=== PATIENT | male | born 1975 | race Caucasian/White ===

== ENCOUNTER 2020-04-02 08:56 | Outpatient (REF) | payer OTHER, SELFPAY | END 2020-04-02 08:57 | disposition home or self-care (01) | LOC: HO.LAB 08:56 | PROVIDERS: Visit Provider Internal Medicine | DX: Z20.828 Contact with and (suspected) exposure to other viral communicable diseases (principal) | CPT/HCPCS: C9803; U0003 ==

== ENCOUNTER 2022-07-24 21:26 | Emergency (ER) | payer SELFPAY ==
--- NOTE | ~2022-07-24 | CT_ITS ---
EXAMINATION: CT ANGIOGRAM NECK CT HEAD WITHOUT CONTRAST CT MAXILLOFACIAL WITHOUT IV CONTRAST CLINICAL INFORMATION: Reason for Exam etoh, fell in ramírez, branch stabbed L neck COMPARISON: None. TECHNIQUE: A noncontrast CT scan was performed from the skull base to the vertex. Multidetector CT acquisitions of the maxillofacial region was obtained without IV contrast. Coronal and sagittal reformats were obtained at the acquisition workstation. Test bolus sequences followed by intravenous administration 70 mL of Omnipaque 350. Helical imaging was performed in the axial plane from the aortic arch to the skull base. The data was processed at the medical lab technologist's workstation for generation of MIP sequences. Angled MIPs and volume rendered reformatted images were also generated at an offline 3D workstation. Stenoses are assessed in accordance with NASCET criteria unless otherwise indicated. This CT examination was performed using dose optimization techniques as appropriate, variously including the following: *Automated exposure control *Adjustment of mA and/or kV according to patient size (this includes techniques or standardized protocols for targeted exams where dose is matched to indication/reason for exam; i.e. extremities or head) *Use of iterative reconstruction technique DLP: 587 mGy-cm FINDINGS: Head: Motion degraded examination. Bifrontal scalp hematoma/contusion. The ventricles and sulci are normal in size and configuration without significant volume loss or hydrocephalus. There is no abnormal attenuation within the brain parenchyma. No territorial loss of moore-white differentiation. No acute intracranial hemorrhage or extra-axial fluid collection. No mass lesion, significant mass effect, or herniation pattern. The orbits are grossly normal. Osseous structures are intact. Maxillofacial: Motion degraded examination compromising diagnostic assessment. Acute mildly displaced nasal bone fractures with soft tissue swelling of the nasal soft tissues and overlying subcutaneous gas on the right, noting motion artifact limits assessment. Partially opacified nasal vestibule. The mandible, maxilla, pterygoid plates, zygomatic arches, paranasal sinus lewis, and bony orbits are intact. No acute osseous abnormality within the maxillofacial region. Mucous retention cyst along the anterior sphenoid sinus. Mastoid air cells remain well-aerated. CTA NECK: The aortic arch is normal. Beam hardening artifact from dense contrast bolus within the adjacent left brachiocephalic vein and limits assessment of the great vessel origins. The common carotid arteries are widely patent. The carotid bifurcations and bilateral internal carotid arteries are patent, noting minimal atherosclerosis at the carotid bifurcations and focal mild tortuosity of the mid right cervical ICA. The vertebral artery ostia are widely patent. Both vertebral arteries are widely patent throughout their extracranial cervical course. CT NECK: 1.1 cm deep subcutaneous laceration within the anterolateral left neck at the level of the hyoid bone approximating the left platysma with adjacent stranding of the subcutaneous fat, foci of air, and asymmetric slight thickening of the left platysma muscle. No drainable fluid collection or hematoma. Impacted bilateral posterior mandibular molar teeth and posterior left maxillary molar tooth. Unremarkable appearance of the aerodigestive tract. The salivary glands are unremarkable. The thyroid gland is unremarkable. No pathologically enlarged cervical chain lymph nodes. The osseous structures are intact without acute osseous injury in the cervical spine. Mild cervical spondylosis. The visualized lung apices and upper mediastinum are within normal limits. CT/CT facial bones wo IV con IMPRESSION: Motion degraded examination. 1. No acute intracranial findings. Bifrontal scalp hematoma/contusion. 2. Acute mildly displaced nasal bone fractures 3. No evidence of traumatic vascular injury in the neck. 4. 1.1 cm deep subcutaneous laceration within the anterolateral left neck at the level of the hyoid bone without drainable fluid collection or hematoma.
--- NOTE | ~2022-07-24 | XR_ITS ---
EXAMINATION: XR CHEST CLINICAL INFORMATION: Chest pain status post fall. COMPARISON: None TECHNIQUE: Frontal view of the chest was obtained. FINDINGS: No significant abnormality is noted involving the heart, lungs, mediastinum, bony thorax or soft tissues. XR/XR chest 1V IMPRESSION: No acute cardiopulmonary process. No evidence for acute traumatic injury.
--- NOTE | 2022-07-24 21:34 | ECG_ITS ---
Test Reason : FALL Blood Pressure : / mmHG Vent. Rate : 114 BPM Atrial Rate : 114 BPM P-R Int : 148 ms QRS Dur : 066 ms QT Int : 286 ms P-R-T Axes : 059 046 050 degrees QTc Int : 394 ms Sinus tachycardia Septal infarct , age undetermined Abnormal ECG No previous ECGs available Referred By: Padmini Link Electronically Signed By:YAZMIN LORENZO MD
[2022-07-24 21:54] VITALS: BP 160/100; BP 172/100; PULSE 114; PULSE 122; RESP 16; O2SAT 94; O2SAT 98; BMI 20.7
[2022-07-24 21:58] VITALS: BP 172/100; PULSE 122; RESP 16; O2SAT 94
[2022-07-24] MEDS: LORazepam 2 MG/ML VIAL IVPUSH (22:21)
[2022-07-24] MEDS: Lidocaine HCl 2%/Epi 1:100,000 20 ML VIAL INFILTRATI (22:21)
[2022-07-24] MEDS: 0.9 % Sodium Chloride 1,000 ML 999 ML IVCONT (22:22)
[2022-07-24] MEDS: iohexoL 350 MG/ML 100 ML INFUS..BTL IV (22:23)
--- NOTE | 2022-07-24 22:56 | MHC.EDTECH ---
pt blood drawn covid swab collected and sent to lab ,pt ekg done and was read by dr greenberg ,pt was assisted to regional climate change analyst into hospital attire ,pt came in with dry blood on his entire face and hands due to several laceration on face and neck ,all wounds was clean with saline by this pct .
[2022-07-24 23:00] LABS: Basophils Percent Auto 0.3 % (0-2); Eosinophils Percent Auto 0.6 % (0-4); Hematocrit 45.9 % (42.0-52.0); Hemoglobin 15.9 g/dl (14.0-18.0); Imm Gran Abs Auto 0.02 X10*3/uL (0.00-0.03); Imm Gran Pct Auto 0.3 % (0.0-0.4); Lymphocytes Percent Auto 15.1 % (20-40); MANUAL DIFF FLAG NO; Mean Corpuscular HGB Conc 34.6 g/dl (31.0-36.0); Mean Corpuscular Hemoglobin 34.9 pg (27.0-33.0); Mean Corpuscular Volume 100.7 fL (80.0-98.0); Mean Platelet Volume 8.5 fL (9.4-12.4); Monocytes Absolute Auto 0.3 X10*3/uL (0.1-1.2); Monocytes Percent Auto 4.4 % (2-11); Neutrophils Absolute Auto 5.4 x10*3/uL (2.0-8.3); Neutrophils Percent Auto 79.3 % (45-73); Platelet Count 231 X10*3/uL (160-400); Red Blood Count 4.56 X10*6/uL (4.60-5.80); Red Cell Distribution Width 12.1 % (11.0-16.0); White Blood Count 6.8 X10*3/uL (4.8-10.8)
[2022-07-24 23:13] LABS: Ethanol 365 mg/dL; INTERNATIONAL NORM RATIO 0.8 (0.9-1.1); Prothrombin Time 9.6 SEC (10.0-13.1)
[2022-07-24 23:15] LABS: Alanine Aminotransferase 21 U/L (0-40); Albumin Level 4.3 g/dL (3.5-5.0); Alkaline Phosphatase 122 U/L (39-117); Anion Gap 18 (12-20); Aspartate Amino Transferase 27 U/L (5-37); Bilirubin Direct < 0.2 mg/dL (0.0-0.5); Bilirubin Total 0.7 mg/dL (0.0-1.0); Blood Urea Nitrogen 11 mg/dL (9-16); Calcium 8.6 mg/dL (8.4-10.2); Carbon Dioxide 21 mmol/L (22-29); Chloride 105 mmol/L (96-108); Creatinine Clr Calc Pharmacy 88.1; Estimated Glomerular Filt Rate > 60; Glucose Random 106 mg/dL (60-115); Sodium 140 mmol/L (135-145); Total Protein 6.7 g/dL (6.5-8.0)
[2022-07-24 23:16] LABS: COVID-19 Test Negative (Negative); IDNOW Serial# 16C4AD1C
[2022-07-24 23:24] LABS: Troponin-I High Sensitivity < 3.5 ng/L (<3.5-35.0)
--- NOTE | 2022-07-25 01:04 | ED_ITS ---
HPI - Alcohol General Chief Complaint: ETOH/Substance Use Stated Complaint: ETOH With Head Strike Time Seen by Provider: 07/24/22 21:31 Source: patient and EMS Mode of arrival: EMS Limitations: other (Alcohol intoxication) History of Present Illness HPI narrative: Patient comes in the emergency room complaining of alcohol intoxication, laceration to the left side of the neck. There is a small 0.5 cm piece of wood sticking out from the laceration in the left side of the neck. Patient is intoxicated, awake and alert x3. Patient states that he drank a large amount of vodka today. Patient does not remember falling. Patient's friend who was with him explained to EMS that the patient fell into a ramírez. Bleeding control, patient speaking full sentences, has no difficulty breathing. Related Data Allergies Allergy/AdvReac Type Severity Reaction Status Date / Time Unable to Assess Allergy Unverified 07/24/22 21:31 Review of Systems Review of Systems: Constitutional : No Weight loss, No Fever, No Chills, No Night Sweats, No Fatigue, No Malaise ENT/Mouth : No Hearing loss, No Ear Pain, No Nasal Congestion, No Sinus Pain, No Hoarseness, No sore throat, No Rhinorrhea, No Swallowing Difficulty Eyes: No Eye Pain, No Swelling, No Redness, No Foreign Body, No Discharge, No Vision Changes Cardiovascular : No Chest Pain, No SOB, No Dyspnea on Exertion, No Orthopnea, No Edema, No Palpitations Respiratory : No Cough, No Sputum, No Wheezing, No Smoke Exposure, No Dyspnea Gastrointestinal : No Nausea, No Vomiting, No Diarrhea, No Constipation, No abdominal Pain, No Hematochezia, No Melena Genitourinary : no irregular bleeding, No Dysuria, No Urinary Frequency, No Hematuria, No Urinary Incontinence, No Urgency, No Flank Pain, No Urinary Flow Changes, No Hesitancy Musculoskeletal : No joint pain, No Myalgias, No Joint Swelling Skin : Complaining of a laceration to the left side of the neck and multiple abrasions to the face and contusions Neuro : No Weakness, No Numbness, No Paresthesias, No Loss of Consciousness, No Dizziness, patient denies Headache Psych : No Anxiety/Panic, No Depression, No SI/HI/AH/VH, No Social Issues, Heme/Lymph: No Bruising, No Bleeding,No Lymphadenopathy Endocrine : No Polyuria, No Polydipsia, No Temperature Intolerance [facility] Past Medical History Medical History Alcohol abuse Social History Social History Alcohol intake: current Alcohol intake frequency: a few times a week Smoked in Last 30 Days: No Use of substances other than those prescribed or required for medical reasons: No Advance Directives: No Advance Directives Information Provided: No Physical Exam ED Vital Signs: Vital Signs - 24 hr 07/24/22 21:54 07/24/22 21:58 Pulse Rate 122 H 122 H Respiratory Rate 16 16 Blood Pressure 172/100 H 172/100 H Pulse Oximetry 94 94 Oxygen Delivery Method Room Air Room Air BMI result Body Mass Index 20.7 Const Other: Appearance: Alert. Oriented X3. Clearly intoxicated but calm and cooperative Eyes: Pupils equal, round and reactive to light. ENT: Patient's nose is swollen, likely has a nasal fracture. Patient has a laceration under the left nostril, patient has a bigger laceration to the left side of the neck, there is a small piece of wood exiting the wound Neck: no palpable step-offs CVS: Normal heart rate and rhythm. Pulses normal. Normal S1 and S2 Respiratory: No respiratory distress. Breath sounds normal. No Wheezing. No rales Abdomen: Soft and nontender. No rigidity. No distention. Skin: Skin warm and dry. Normal skin color. Normal skin turgor. Extremities: No lower extremity edema. No Lacerations. No Rash Neuro: Oriented X 3. No motor deficit. No sensory deficit. Moving all extremities. No slurred speech. CN 2 through 12 grossly intact Psych: calm, cooperative, normal affect Course Course Course Narrative: -on arrival, patient was taking immediately to CT scan. Patient was moving too much, given 2 mg of IV Ativan to help him stay still. -labs pending Medical Decision Making Medical Decision Making MDM Narrative: -patient's CT scan shows a nasal fracture also, there is a laceration to the left side of the neck, patient has multiple bifrontal scalp hematomas/contusions, no brain bleed, vascular structures and intact -patient received 7 stitches to the left side of the neck. Two stitches under the left nostril. For the neck, 2% lidocaine with epinephrine was used. For the nose, patient was noted to be very somnolent, it was done without lidocaine, patient tolerated well the procedure. -patient's fiancee at bedside, she seems intoxicated too, but being calm and cooperative, very anxious. Differential Diagnosis Differential Diagnoses: The differential diagnosis associated with the presentation includes (Alcohol intoxication, fall, contusion, brain bleed) Lab Data MDM Lab Attestation statement: I reviewed the patient's lab results. 07/24/22 22:50 07/24/22 22:50 Labs: Lab Results 07/24/22 07/24/22 07/24/22 Range/Units 22:50 22:50 22:50 WBC 6.8 (4.8-10.8) X10*3/uL RBC 4.56 L (4.60-5.80) X10*6/uL Hgb 15.9 (14.0-18.0) g/dl Hct 45.9 (42.0-52.0) % MCV 100.7 H (80.0-98.0) fL MCH 34.9 H (27.0-33.0) pg MCHC 34.6 (31.0-36.0) g/dl RDW 12.1 (11.0-16.0) % Plt Count 231 (160-400) X10*3/uL MPV 8.5 L (9.4-12.4) fL Immature Gran % (Auto) 0.3 (0.0-0.4) % Neut % (Auto) 79.3 H (45-73) % Lymph % (Auto) 15.1 L (20-40) % Marshall % (Auto) 4.4 (2-11) % Eos % (Auto) 0.6 (0-4) % Baso % (Auto) 0.3 (0-2) % Lymph # (Auto) 1.0 L (1.2-4.9) X10*3/uL Marshall # (Auto) 0.3 (0.1-1.2) X10*3/uL Eos # (Auto) 0.0 (0.0-0.4) X10*3/uL Baso # (Auto) 0.0 (0.0-0.2) X10*3/uL Abs Immat Gran (auto) 0.02 (0.00-0.03) X10*3/uL Absolute Neuts (auto) 5.4 (2.0-8.3) x10*3/uL Absolute Nucleated RBC 0.000 (0.0-0.012) X10*3/uL Nucleated RBC % (auto) 0.0 (0.0-0.2) /100WBC PT 9.6 L (10.0-13.1) SEC INR 0.8 L (0.9-1.1) Sodium 140 (135-145) mmol/L Potassium 4.0 (3.3-5.1) mmol/L Chloride 105 (96-108) mmol/L Carbon Dioxide 21 L (22-29) mmol/L Anion Gap 18 (12-20) BUN 11 (9-16) mg/dL Creatinine 0.95 (0.5-1.4) mg/dL Estim Creat Clear Calc 88.1 Estimated GFR > 60 Random Glucose 106 (60-115) mg/dL Calcium 8.6 (8.4-10.2) mg/dL Magnesium 2.0 (1.6-2.6) mg/dL Total Bilirubin 0.7 (0.0-1.0) mg/dL Direct Bilirubin < 0.2 (0.0-0.5) mg/dL AST 27 (5-37) U/L ALT 21 (0-40) U/L Alkaline Phosphatase 122 H (39-117) U/L Troponin I High Sens (<3.5-35.0) ng/L Total Protein 6.7 (6.5-8.0) g/dL Albumin 4.3 (3.5-5.0) g/dL Ethyl Alcohol mg/dL COVID-19 ([facility]) (Negative) COVID-19 Clin Com 07/24/22 07/24/22 07/24/22 Range/Units 22:50 22:50 22:50 WBC (4.8-10.8) X10*3/uL RBC (4.60-5.80) X10*6/uL Hgb (14.0-18.0) g/dl Hct (42.0-52.0) % MCV (80.0-98.0) fL MCH (27.0-33.0) pg MCHC (31.0-36.0) g/dl RDW (11.0-16.0) % Plt Count (160-400) X10*3/uL MPV (9.4-12.4) fL Immature Gran % (Auto) (0.0-0.4) % Neut % (Auto) (45-73) % Lymph % (Auto) (20-40) % Marshall % (Auto) (2-11) % Eos % (Auto) (0-4) % Baso % (Auto) (0-2) % Lymph # (Auto) (1.2-4.9) X10*3/uL Marshall # (Auto) (0.1-1.2) X10*3/uL Eos # (Auto) (0.0-0.4) X10*3/uL Baso # (Auto) (0.0-0.2) X10*3/uL Abs Immat Gran (auto) (0.00-0.03) X10*3/uL Absolute Neuts (auto) (2.0-8.3) x10*3/uL Absolute Nucleated RBC (0.0-0.012) X10*3/uL Nucleated RBC % (auto) (0.0-0.2) /100WBC PT (10.0-13.1) SEC INR (0.9-1.1) Sodium (135-145) mmol/L Potassium (3.3-5.1) mmol/L Chloride (96-108) mmol/L Carbon Dioxide (22-29) mmol/L Anion Gap (12-20) BUN (9-16) mg/dL Creatinine (0.5-1.4) mg/dL Estim Creat Clear Calc Estimated GFR Random Glucose (60-115) mg/dL Calcium (8.4-10.2) mg/dL Magnesium (1.6-2.6) mg/dL Total Bilirubin (0.0-1.0) mg/dL Direct Bilirubin (0.0-0.5) mg/dL AST (5-37) U/L ALT (0-40) U/L Alkaline Phosphatase (39-117) U/L Troponin I High Sens < 3.5 (<3.5-35.0) ng/L Total Protein (6.5-8.0) g/dL Albumin (3.5-5.0) g/dL Ethyl Alcohol 365 H* mg/dL COVID-19 ([facility]ME) Negative (Negative) COVID-19 Clin Com See Note Independent Interpretation I performed an independent interpretation of an: CT Scan Interpretation: Interpretation of Head CT: No acute intracranial bleed, interpretation of neck CTA: No fluid collection or hematoma on the neck Radiology Impression Discussion of test interpretation with radiology: I have reviewed the radiologist's reading. Radiologist Impression: FINDINGS: Head: Motion degraded examination. Bifrontal scalp hematoma/contusion. The ventricles and sulci are normal in size and configuration without significant volume loss or hydrocephalus.? There is no abnormal attenuation within the brain parenchyma.? No territorial loss of moore-white differentiation. No acute intracranial hemorrhage or extra-axial fluid collection.? No mass lesion, significant mass effect, or herniation pattern. The orbits are grossly normal.? Osseous structures are intact. Maxillofacial: Motion degraded examination compromising diagnostic assessment. Acute mildly displaced nasal bone fractures with soft tissue swelling of the nasal soft tissues and overlying subcutaneous gas on the right, noting motion artifact limits assessment. Partially opacified nasal vestibule. The mandible, maxilla, pterygoid plates, zygomatic arches, paranasal sinus lewis, and bony orbits are intact. No acute osseous abnormality within the maxillofacial region. Mucous retention cyst along the anterior sphenoid sinus. Mastoid air cells remain well-aerated. CTA NECK: The aortic arch is normal. Beam hardening artifact from dense contrast bolus within the adjacent left brachiocephalic vein and limits assessment of the great vessel origins. The common carotid arteries are widely patent. The carotid bifurcations and bilateral internal carotid arteries are patent, noting minimal atherosclerosis at the carotid bifurcations and focal mild tortuosity of the mid right cervical ICA. The vertebral artery ostia are widely patent. Both vertebral arteries are widely patent throughout their extracranial cervical course.? ? CT NECK: 1.1 cm deep subcutaneous laceration within the anterolateral left neck at the level of the hyoid bone approximating the left platysma with adjacent stranding of the subcutaneous fat, foci of air, and asymmetric slight thickening of the left platysma muscle. No drainable fluid collection or hematoma. Impacted bilateral posterior mandibular molar teeth and posterior left maxillary molar tooth. Unremarkable appearance of the aerodigestive tract. The salivary glands are unremarkable. The thyroid gland is unremarkable. No pathologically enlarged cervical chain lymph nodes.? The osseous structures are intact without acute osseous injury in the cervical spine. Mild cervical spondylosis. The visualized lung apices and upper mediastinum are within normal limits. CT/CT angio neck IMPRESSION: ? Motion degraded examination. ? 1.? No acute intracranial findings. Bifrontal scalp hematoma/contusion. ? 2.? Acute mildly displaced nasal bone fractures 3.? No evidence of traumatic vascular injury in the neck. 4.? 1.1 cm deep subcutaneous laceration within the anterolateral left neck at the level of the hyoid bone without drainable fluid collection or hematoma. ? Medications Administered Discontinued Medications Generic Name Dose Route Start Last Admin Trade Name Freq PRN Reason Stop Dose Admin Sodium Chloride 1,000 mls @ 999 mls/hr 07/24/22 21:34 07/25/22 00:07 Ns IVCONT 07/24/22 22:34 Infused .Q1H1M ONE Infusion Iohexol 100 ml 07/24/22 22:23 07/24/22 22:23 Iohexol 350 Mg/Ml 100 Ml Infus..Btl IV 07/24/22 22:24 70 ml ONCE ONE Administration Lidocaine/Epinephrine 20 ml 07/24/22 21:34 07/24/22 22:21 Lidocaine Hcl 2%/Epi 1:100,000 20 Ml Vial INFILTRATI 07/24/22 21:35 20 ml ONCE ONE Administration Lorazepam 2 mg 07/24/22 22:00 07/24/22 22:21 Lorazepam 2 Mg/Ml Vial IVPUSH 07/24/22 22:01 2 mg ONCE ONE Administration Discharge Plan Discharge Clinical Impression: Alcoholic intoxication, Face lacerations, Contusion Patient Disposition: Home, Self-Care Instructions: Alcohol Intoxication (ED), Laceration (ED) Additional Instructions: Your stitches need to be removed in 7-10 days. You may return to the emergency room, or you can go to an urgent care or with your primary care physician. Please follow-up with your primary care physician tomorrow. If you have any worsening or new symptoms, please return to the emergency room or call 911 Interventions: Ambler-Suicide Risk Severity Scale Last Done: 07/24/22 21:57
--- NOTE | 2022-07-25 03:00 | MHC.EDTECH ---
PT VOMITED LARGE AMOUNT ,CARE GIVEN ,RN AWARE .
--- NOTE | 2022-07-25 03:15 | MHC.EDTECH ---
this pct assumed care of pt at 0300 ,vitals sign taken pt fiance at bed ,pt had sip of juli puja .
[2022-07-25 03:23] VITALS: BP 133/88; PULSE 96; RESP 16; TEMP 36.6; O2SAT 97
== END 2022-07-25 09:11 | disposition home or self-care (01) ==
PROVIDERS: Emergency Provider Emergency Medicine
DX: F10.220 Alcohol dependence with intoxication, uncomplicated (principal); Y90.8 Blood alcohol level of 240 mg/100 ml or more; S02.2XXA Fracture of nasal bones, initial encounter for closed fracture; S11.92XA Laceration with foreign body of unspecified part of neck, initial encounter; S01.81XA Laceration without foreign body of other part of head, initial encounter; S00.03XA Contusion of scalp, initial encounter; W01.198A Fall on same level from slipping, tripping and stumbling with subsequent striking against other object, initial encounter; Z20.822 Contact with and (suspected) exposure to COVID-19; Y93.01 Activity, walking, marching and hiking; Y92.488 Other paved roadways as the place of occurrence of the external cause; Y99.9 Unspecified external cause status
CPT/HCPCS: 12011; 12041; 36415; 70450; 70486; 70498; 71045; 80048; 80076; 82077; 83735; 84484; 85025; 85610; 87635; 93005; 96361; 96374; 99285; J2060; Q9967